=== PATIENT | male | born 1970 | race African-American/Black ===

== ENCOUNTER 2023-06-27 14:41 | Emergency (ER) | payer MEDICAID ==
[~2023-06-27] VITALS: Ht 185.4 cm; Wt 100.0 kg
[2023-06-27 14:51] VITALS: O2SAT 100
[2023-06-27 16:13] LABS: BASOPHILS % 0.9 % (0.0-2.0); EOSINOPHILS % 2.4 % (0.0-5.0); LYMPHOCYTES % 42.6 % (20.0-50.0); MEAN CORPUSCULAR HEMOGLOBIN 28.8 pg (28.0-32.0); MEAN CORPUSCULAR HGB CONC 34.3 g/dL (31.0-37.0); MEAN CORPUSCULAR VOLUME 84.1 fL (80.0-94.0); MEAN PLATELET VOLUME 8.1 fl (7.4-10.4); MONOCYTES % 11.3 % (2.0-8.0); NEUTROPHILS % 42.8 % (40.0-76.0); PLATELET 200 x1000/uL (130-400); RED BLOOD CELL COUNT 4.52 mill/uL (4.7-6.1); RED CELL DISTRIBUTION WIDTH 14.2 % (11.6-14.6)
[2023-06-27 16:28] LABS: ALANINE AMINOTRANSFERASE 8 IU/L (10-49); ALBUMIN 4.7 g/dL (3.2-4.8); ASPARTATE AMINOTRANSFERASE 16 IU/L (<34); BILIRUBIN TOTAL 0.4 mg/dL (0.1-1.0); CALCIUM 9.2 mg/dL (8.7-10.4); CARBON DIOXIDE 26 mEq/L (21-32); CHLORIDE 108 mEq/L (98-107); CREATININE 0.9 mg/dL (0.6-1.3); GLUCOSE 90 mg/dL (70-105); POTASSIUM 3.6 mEq/L (3.5-5.1); PROTEIN TOTAL 7.9 g/dL (6.0-8.3); SODIUM 141 mEq/L (136-145); TROPONIN I HIGH SENSITIVITY 52 ng/L (3.0-53); UREA NITROGEN BLOOD 9 mg/dL (9-23)
[2023-06-27 18:40] LABS: TROPONIN I HIGH SENSITIVITY 51 ng/L (3.0-53)
[2023-06-27] MEDS ORDERED: IBUP-2030 MT (19:07)
[2023-06-27] MEDS: IBUPROFEN 800MG TABLET PO ONE (20:40)
[2023-06-27] MEDS: IBUPROFEN 400MG TABLET PO NR (20:46)
[2023-06-27] MEDS ORDERED: ACET-2708 MT (21:54)
[2023-06-27] MEDS: HYDROCODONE/ACETAMINOPHEN 5/325MG TABLET PO NR (22:04)
[2023-06-27 22:16] VITALS: BP 153/95; PULSE 98; RESP 19; TEMP 98.2
== END 2023-06-27 22:20 ==
LOC: ER 14:41
DX: R00.2 Palpitations (principal); J45.909 Unspecified asthma, uncomplicated; M25.552 Pain in left hip; E11.9 Type 2 diabetes mellitus without complications; E78.00 Pure hypercholesterolemia, unspecified; I10 Essential (primary) hypertension
CPT/HCPCS: 36415; 71045; 73552; 80053; 84484; 85025; 93005; 93970; 99285

== ENCOUNTER 2023-07-09 08:59 | Emergency (ER) | payer BC, MEDICAID ==
[~2023-07-09] VITALS: Ht 182.9 cm; Wt 100.0 kg
[~2023-07-09 08:59] MED LIST: ACET-2708 MT
[2023-07-09 09:01] VITALS: TEMP 98.4; O2SAT 98
[2023-07-09 09:39] LABS: EOSINOPHILS % 2.7 % (0.0-5.0); HEMATOCRIT. 40.5 % (42.0-52.0); HEMOGLOBIN. 13.1 g/dL (14.0-18.0); LYMPHOCYTES % 43.8 % (20.0-50.0); MEAN CORPUSCULAR HEMOGLOBIN 27.8 pg (28.0-32.0); MEAN CORPUSCULAR HGB CONC 32.4 g/dL (31.0-37.0); MEAN CORPUSCULAR VOLUME 85.8 fL (80.0-94.0); MEAN PLATELET VOLUME 8.1 fl (7.4-10.4); MONOCYTES % 9.3 % (2.0-8.0); NEUTROPHILS % 43.2 % (40.0-76.0); PLATELET 229 x1000/uL (130-400); RED BLOOD CELL COUNT 4.73 mill/uL (4.7-6.1); RED CELL DISTRIBUTION WIDTH 14.6 % (11.6-14.6); WHITE BLOOD COUNT 3.5 x1000/uL (4.5-11.0)
[2023-07-09] MEDS: ASPIRIN 81MG TABLET PO ONE (09:42)
[2023-07-09 09:54] LABS: ALANINE AMINOTRANSFERASE 10 IU/L (10-49); ALBUMIN 4.9 g/dL (3.2-4.8); ASPARTATE AMINOTRANSFERASE 24 IU/L (<34); BILIRUBIN TOTAL 0.3 mg/dL (0.1-1.0); CALCIUM 9.3 mg/dL (8.7-10.4); CARBON DIOXIDE 23 mEq/L (21-32); CHLORIDE 109 mEq/L (98-107); GLUCOSE 135 mg/dL (70-105); POTASSIUM 4.3 mEq/L (3.5-5.1); SODIUM 140 mEq/L (136-145); TROPONIN I HIGH SENSITIVITY 51 ng/L (3.0-53); UREA NITROGEN BLOOD 10 mg/dL (9-23)
[2023-07-09] MEDS: ACETAMINOPHEN 325MG TABLET PO ONE (10:52)
[2023-07-09 11:06] VITALS: BP 125/78; PULSE 76; RESP 19
== END 2023-07-09 11:16 | disposition home or self-care (01) ==
LOC: ER 08:59
DX: R07.89 Other chest pain (principal); R13.10 Dysphagia, unspecified; K46.9 Unspecified abdominal hernia without obstruction or gangrene; I10 Essential (primary) hypertension; E78.00 Pure hypercholesterolemia, unspecified; E11.9 Type 2 diabetes mellitus without complications; J45.909 Unspecified asthma, uncomplicated; Z20.822 Contact with and (suspected) exposure to COVID-19; Z88.0 Allergy status to penicillin; Z88.9 Allergy status to unspecified drugs, medicaments and biological substances
CPT/HCPCS: 36415; 71045; 80053; 83880; 84484; 85025; 87426; 87804; 93005; 99285